=== PATIENT | female | born 1980 | race Caucasian/White ===

== ENCOUNTER 2021-08-06 17:23 | Emergency (ER) | payer SELFPAY ==
[2021-08-06 17:52] VITALS: BMI 45.7
[2021-08-06 22:13] VITALS: BP 119/57; PULSE 60; TEMP 98.3
== END 2021-08-06 23:02 | disposition home or self-care (01) ==
LOC: JER 17:23
DX: B34.9 Viral infection, unspecified (principal)
CPT/HCPCS: 99282-25